=== PATIENT | male | born 1995 | race Asian ===

== ENCOUNTER 2018-06-20 16:55 | Emergency (ER) | payer OTHER ==
[2018-06-20 18:15] LABS: MEAN CORPUSCULAR HEMOGLOBIN 30.7 pg (27.0-33.0); MEAN CORPUSCULAR VOLUME 90.3 fl (80.0-96.0); PLATELET COUNT, AUTOMATED 236 10^3/uL (150-450); RED BLOOD COUNT 5.54 10^6/uL (4.30-6.10); RED CELL DISTRIBUTION WIDTH 11.7 % (11.5-14.5); WHITE BLOOD COUNT 7.6 10^3/uL (4.0-10.0)
[2018-06-20 18:36] LABS: AMPHETAMINES LEVEL URINE NEGATIVE (NEGATIVE); BARBITURATES URINE NEGATIVE (NEGATIVE); BENZODIAZEPINES URINE NEGATIVE (NEGATIVE); CANNABINOIDS URINE NEGATIVE (NEGATIVE); COCAINE METABOLITE URINE NEGATIVE (NEGATIVE); METHADONE URINE NEGATIVE (NEGATIVE); OPIATES URINE NEGATIVE (NEGATIVE); PHENCYCLIDINE URINE NEGATIVE (NEGATIVE)
[2018-06-20 18:44] LABS: ALBUMIN/GLOBULIN RATIO 1.25 (1.00-1.93); ALKALINE PHOSPHATASE 66 U/L (45-117); ALT/SGPT 34 U/L (12-78); ANION GAP 8 MEQ/L (8-16); AST/SGOT 20 U/L (7-37); BILIRUBIN,DIRECT 0.2 MG/DL (0.0-0.2); BILIRUBIN,TOTAL 0.7 MG/DL (0.2-1.0); BLOOD UREA NITROGEN 17 MG/DL (7-18); CARBON DIOXIDE LEVEL 28 MEQ/L (21-32); CHLORIDE LEVEL 104 MEQ/L (98-107); CREATININE FOR GFR 1.75 MG/DL (0.70-1.30); ETHYL ALCOHOL (ETHANOL) < 0.003 % (0.000-0.010); GLOMERULAR FILTRATION RATE 51.7 (>60); GLUCOSE, FASTING 93 MG/DL (70-100); POTASSIUM SERUM 4.1 MEQ/L (3.5-5.1); SALICYLATE LEVEL < 1.7 MG/DL (5.0-30.0); SODIUM LEVEL 140 MEQ/L (136-145); TOTAL PROTEIN 7.2 GM/DL (6.4-8.2)
[2018-06-20 18:52] LABS: ACETAMINOPHEN LEVEL < 2.0 UG/ML (10.0-30.0)
== END 2018-06-20 20:54 | disposition home or self-care (01) ==
LOC: M ED 16:55
DX: F43.20 Adjustment disorder, unspecified (principal); F41.9 Anxiety disorder, unspecified; Z88.8 Allergy status to other drugs, medicaments and biological substances; Z88.6 Allergy status to analgesic agent; Z91.018 Allergy to other foods; Z79.899 Other long term (current) drug therapy
CPT/HCPCS: G0480